=== PATIENT | male | born 1965 | race Hispanic/Latino ===

== ENCOUNTER 2018-03-08 06:29 | Day surgery (SDC) | payer BC ==
[2018-02-26 14:17] VITALS: BMI 41.0
[2018-03-08] MEDS ORDERED: Bupivacaine 0.5% 50 ML IJ ONE (07:19)
[2018-03-08] MEDS ORDERED: Midazolam 2 MG/2 ML VIAL ONE ×2 (07:49→08:52)
[2018-03-08] MEDS ORDERED: Propofol 10 mg/ml Inj (20 ML) ONE ×2 (07:49→08:53)
[2018-03-08] MEDS ORDERED: Rocuronium 10 mg/ml (5 ml) ONE (07:50)
[2018-03-08] MEDS ORDERED: Glycopyrrolate 0.2 mg/ml (2ml vial) ONE (09:11)
[2018-03-08] MEDS ORDERED: Neostigmine Methylsulfate 3mg/3ml Syringe IV ONE (09:12)
[2018-03-08] MEDS ORDERED: Oxycodone/Acetaminophen 5/325 mg Tab PO PRN (09:26)
[2018-03-08] MEDS ORDERED: HYDROmorphone 1 mg/ml ISec IVP PRN (09:27)
[2018-03-08] MEDS ORDERED: Lactated Ringer's 1,000 ML IV SCH (09:30)
--- NOTE | 2018-03-08 09:30 | PCM.SURG1 ---
Surgeon's Initial Post Op Note - Surgeon's Notes Surgeon: Dr. Norman Ore Bridge Operator: Dr. Newman PGY3, Niranjan MS4 Type of Anesthesia: General Endo Anesthesia Administered By: Dr. Nguyễn Pre-Operative Diagnosis: Incarcerated Umbilical Hernia Operative Findings: Incarcerated Umbilical Hernia Post-Operative Diagnosis: Incarcerated Umbilical Hernia Operation Performed: Laparoscopic Umbilical Hernia Repair Specimen/Specimens Removed: none Estimated Blood Loss: EBL {In ML}: 2 Blood Products Given: N/A Drains Used: No Drains Post-Op Condition: Good Date of Surgery/Procedure: 03/08/18 Time of Surgery/Procedure: 09:30
[2018-03-08 10:49] VITALS: RESP 18; TEMP 97.9
[2018-03-08 11:09] VITALS: BP 98/62; PULSE 86; O2SAT 93
--- NOTE | 2018-03-08 20:14 | OP ---
PROCEDURE DATE: 03/08/2018 PREOPERATIVE DIAGNOSIS: Incarcerated umbilical hernia. POSTOPERATIVE DIAGNOSIS: Incarcerated umbilical hernia. PROCEDURE PERFORMED: Laparoscopic repair of the incarcerated umbilical hernia with mesh. SURGEON: Hung Norman MD [facility]: Dr. Leal. TYPE OF ANESTHESIA: General endotracheal anesthesia. ANESTHESIOLOGIST: Dr. Nguyễn. ESTIMATED BLOOD LOSS: Minimal. SPECIMEN: None. DESCRIPTION OF PROCEDURE: The patient is a 52-year-old obese male with a history of large incarcerated umbilical hernia, for which he was brought in to repair in order to alleviate his discomfort. The patient was brought to the operating room and placed on the operative table in supine position. The patient was connected to EKG, blood pressure, and pulse oximetry monitors. The patient then underwent general endotracheal anesthesia, and was prepped and draped in usual sterile fashion. First, a standard time-out procedure took place when everybody in the room agreed as to the patient's identity, diagnosis, and procedure to be performed. Using a straight 10 mm scope, we proceeded with accessing abdominal cavity under direct vision. First, the area of incision under the left costal margin was infiltrated with lidocaine that was done at the midclavicular line. Next, an incision was made in the skin using 11 blade and a trocar placed over the scope was then used for advancement into the abdominal cavity under direct visualization. Once the tip of the catheter was in the abdominal cavity, the pneumoperitoneum was instilled and once full pneumoperitoneum obtained, we then proceeded with careful evaluation of abdominal cavity. It appeared that there was omentum stuck into the hernia and the omentum also was incarcerated within the hernia sac itself. We then placed a 5 mm trocar into the anterior axillary line in the left lower quadrant and proceeded with carefully teasing out the omentum from the hernia and once the hernia was reduced, the attachments of the omentum to the abdominal wall were taken down using electrocautery. The detected self was about a centimeter and a half in size. A 9 cm Symbotec patch was used in order to cover the defect with adequate side margins. This was placed with the right rough towards the abdominal wall and covered side towards the bowel. We then used dissolvable tackers in order to fix it in place with 2 erosive tackers, one at the edge and one closer to the center. This completely fixed the defect with adequate overlap. The pneumoperitoneum was now released after the trocars were evaluated and then there was no bleeding. Once pneumoperitoneum was completely released, the wounds were closed using 0 Vicryl for the fascia and 3-0 Vicryl for subcutaneous tissue and 4-0 Monocryl for the skin. A sterile Dermabond dressing was applied to the wound. The patient tolerated the procedure well and there were no complications. The patient was awakened and transferred to the recovery room for further observation. Hugn Norman MD [facility]
== END 2018-03-08 12:00 | disposition home or self-care (01) ==
LOC: SDS 06:29
PROVIDERS: ATTEND General Practice
DX: K42.0 Umbilical hernia with obstruction, without gangrene (principal); E66.9 Obesity, unspecified
CPT/HCPCS: 36415; 49653; 85730; C1781; J0690; J1170; J2001; J2250; J2405; J2704; J2710; J3010; J7120 ×2